=== PATIENT | female | born 1975 | race African-American/Black ===

== ENCOUNTER 2017-09-13 19:36 | Emergency (ER) | payer OTHER, MEDICAID ==
[~2017-09-13] VITALS: Ht 165.1 cm; Wt 81.7 kg
[~2017-09-13 19:36] MED LIST: TRINATE TABLET1 TAB PO
[2017-09-13 20:06] LABS: URINE BILIRUBIN NEGATIVE (Negative); URINE BLOOD TRACE (Negative); URINE CLARITY CLEAR; URINE COLOR YELLOW; URINE GLUCOSE-RANDOM 3+ (Negative); URINE KETONES NEGATIVE (Negative); URINE LEUKOCYTES-REFLEX NEGATIVE (Negative); URINE PROTEIN NEGATIVE (Negative); URINE SPECIFIC GRAVITY <= 1.005 (1.005-1.030); URINE UROBILINOGEN 0.2 E.U./dl (0.2-1.0)
[2017-09-13 20:06] LABS: HEMOGLOBIN 10.2 gm/dL (12.0-15.0); MCV 59.8 fL (80.0-100.0); NUCLEATED RBCS 0 /100WBC
[2017-09-13 20:07] LABS: HEMATOCRIT 32.2 % (37.0-47.0); MCHC 31.7 g/dL (28.0-37.0); RBC 5.38 mil/uL (4.20-5.00); RDW-CV 22.6 % (10.5-14.5); WBC 7.3 thou/uL (4.0-11.0)
[2017-09-13 20:12] LABS: URINE NITRITE-REFLEX POSITIVE (Negative)
[2017-09-13 20:14] LABS: CALCIUM 8.3 mg/dL (8.5-10.1); CREATININE 0.9 mg/dL (0.6-1.3); POTASSIUM 3.4 mmol/L (3.5-5.1)
[2017-09-13 20:19] LABS: ALBUMIN 3.1 g/dL (3.4-5.0); TOTAL BILIRUBIN 0.2 mg/dL (<0.1-1.0); TOTAL PROTEIN 7.5 g/dL (6.4-8.2)
[2017-09-13 20:39] LABS: SQUAMOUS 0-3 Few /LPF (0-3)
[2017-09-13 20:40] LABS: BACTERIA-REFLEX >30 Many /HPF (None Seen); CASTS None Seen /LPF (None Seen); CRYSTALS None Seen /LPF (None Seen); URINE RBC 0-2 Rare /HPF (0-2); URINE WBC-REFLEX 0-5 Rare /HPF (0-5)
[2017-09-13] MEDS ORDERED: KEFLEX500 M1 PO (20:43)
[2017-09-13] MEDS ORDERED: PROMETHAZINE V473 ML PO (20:43)
[2017-09-13] MEDS ORDERED: TESSALON PERLE100 MG PO (20:43)
[2017-09-13 20:54] LABS: PLATELET COUNT* 175 thou/uL (150-400)
[2017-09-13 20:57] LABS: ABSOLUTE LYMPHOCYTES 0.3 thou/uL (0.8-5.3); ABSOLUTE MONOCYTES 0.4 thou/uL (0.0-1.2); ABSOLUTE NEUTROPHILS 6.6 thou/uL (1.6-8.1); ANISOCYTOSIS 2+; HYPOCHROMASIA 2+; MICROCYTES 2+; PLATELET ESTIMATE ADEQUATE
[2017-09-13 21:01] VITALS: BP 146/79
[2017-09-13 21:09] LABS: MPV 8.8 fl. (7.2-11.1)
== END 2017-09-13 21:02 | disposition home or self-care (01) ==
LOC: M.ERS 19:36
PROVIDERS: Physician Assistant
DX: N39.0 Urinary tract infection, site not specified (principal); D64.9 Anemia, unspecified; E11.65 Type 2 diabetes mellitus with hyperglycemia; I10 Essential (primary) hypertension; F17.210 Nicotine dependence, cigarettes, uncomplicated; Z90.49 Acquired absence of other specified parts of digestive tract; Z88.2 Allergy status to sulfonamides; Z88.7 Allergy status to serum and vaccine

== ENCOUNTER 2018-04-23 14:39 | Emergency (ER) | payer OTHER, MEDICAID ==
[~2018-04-23] VITALS: Ht 165.1 cm; Wt 79.8 kg
[~2018-04-23 14:39] MED LIST changes: +KEFLEX500 M1 PO; +PROMETHAZINE V473 ML PO; +TESSALON PERLE100 MG PO
[2018-04-23] MEDS ORDERED: INVOKANA100 MG PO (14:50)
[2018-04-23 16:52] LABS: ANION GAP 7 mmol/L (7-16); BUN 7 mg/dL (7-18); CALCIUM 8.8 mg/dL (8.5-10.1); CHLORIDE 99 mmol/L (98-107); CO2 28 mmol/L (21-32); CREATININE 0.9 mg/dL (0.6-1.3); GLUCOSE 366 mg/dL (70-99); POTASSIUM 3.8 mmol/L (3.5-5.1); SODIUM 134 mmol/L (136-145)
[2018-04-23 16:54] LABS: HEMATOCRIT 32.7 % (37.0-47.0); HEMOGLOBIN 9.9 gm/dL (12.0-15.0); MCH 16.8 pg (26.0-34.0); MCHC 30.3 g/dL (28.0-37.0); MCV 55.4 fL (80.0-100.0); MPV 9.3 fl. (7.2-11.1); NUCLEATED RBCS 0 /100WBC; PLATELET COUNT* 248 thou/uL (150-400); WBC 4.9 thou/uL (4.0-11.0)
[2018-04-23 16:59] LABS: ALBUMIN 3.4 g/dL (3.4-5.0); ALKALINE PHOSPHATASE 69 U/L (46-116); SGOT 10 U/L (15-37); SGPT 15 U/L (30-65); TOTAL BILIRUBIN 0.2 mg/dL (<0.1-1.0); TOTAL PROTEIN 7.7 g/dL (6.4-8.2); TROPONIN-I LEVEL <0.06 ng/mL (<0.06)
[2018-04-23] MEDS ORDERED: CARAFATE1 GM/10 ML PO (17:33)
[2018-04-23] MEDS ORDERED: PRILOSEC 20 MG20 MG PO (17:33)
[2018-04-23 17:34] LABS: ABSOLUTE LYMPHOCYTES 1.9 thou/uL (0.8-5.3); ABSOLUTE MONOCYTES 0.2 thou/uL (0.0-1.2); ABSOLUTE NEUTROPHILS 2.8 thou/uL (1.6-8.1); PLATELET ESTIMATE ADEQUATE
[2018-04-23] MEDS ORDERED: ONDANSETRON HCL4 M2 PO (17:34)
[2018-04-23 17:37] LABS: ANISOCYTOSIS 1+; HYPOCHROMASIA 1+; MICROCYTES 2+
[2018-04-23 17:38] LABS: OVALOCYTES 1+
[2018-04-23 17:44] VITALS: BP 114/81
--- NOTE | 2018-04-24 12:25 | EKG ---
[place] [address] ELECTROCARDIOGRAM REPORT Name: LUCRETIA JACKMAN Room: [facility]#: [id number] Admission: 04/23/18 Attend Phys: Discharge: 04/23/18 Date of : 77 Report #: [id number] THIS REPORT FOR: //name// [facility] ED Test Date: 2018-04-23 Test Time: 16:11:05 Pat Name: LUCRETIA AUGUSTINA Department: Room: Gender: F Electrophysiology Nurse Practitioner: Beena HARDY : 1975 Requested By: Carrie Ruiz Order Number: [id number] MD: Yanick North Measurements Intervals [place] Rate: 71 P: 63 OH: 211 QRS: -4 QRSD: 106 T: 4 QT: 400 QTc: 435 Interpretive Statements Sinus rhythm Prolonged [place] interval Borderline T wave abnormalities Compared to ECG 06/23/2015 21:58:10 First degree AV block now present T-wave abnormality now present Electronically Signed On 04-24-2018 12:25:41 [employer]PRENTICE by Yanick North [email or web address] <ELECTRONICALLY SIGNED> By: Yanick North MD, [facility] 04/24/18 1225 1611 1611 Yanick North MD, [facility] /EPI
== END 2018-04-23 17:45 | disposition home or self-care (01) ==
LOC: M.ERS 14:39
PROVIDERS: Nurse Practitioner Family
DX: K21.9 Gastro-esophageal reflux disease without esophagitis (principal); D53.9 Nutritional anemia, unspecified; E10.65 Type 1 diabetes mellitus with hyperglycemia; I10 Essential (primary) hypertension; Z90.49 Acquired absence of other specified parts of digestive tract; F17.210 Nicotine dependence, cigarettes, uncomplicated; Z88.2 Allergy status to sulfonamides; Z88.8 Allergy status to other drugs, medicaments and biological substances; Z88.7 Allergy status to serum and vaccine